=== PATIENT | female | born 1995 | race Caucasian/White ===

== ENCOUNTER 2017-07-05 13:45 | Emergency (ER) | payer OTHER ==
[~2017-07-05] VITALS: Ht 170.2 cm; Wt 106.0 kg
[2017-07-05 13:50] VITALS: BP 169/99; PULSE 102; TEMP 36.7; O2SAT 99; Ht 170.2 cm; Wt 106.0 kg
[2017-07-05] MEDS ORDERED: KETOROLAC TROMETHAMINE 15 MG/ML VIAL IV STA (14:09)
--- NOTE | 2017-07-05 14:09 | EMERGENCY ROOM VISIT NOTE ---
History First contact with patient: 13:54 Chief Complaint: FLANK PAIN Stated Complaint: BACK PAIN URGE TO URINATE History of Present Illness The patient is a 22 year old female who presents to the Emergency Room with complaints of flank pain and urinary symptoms. The patient states that she has had urinary urgency beginning 2 days ago. She states that this morning, she developed a sense onset of severe right flank pain rated a 7/10. She states this pain made it very difficult for her to get comfortable. Pain is worsened by sitting and slightly better when pacing or standing. The patient reports a history of kidney stones as a child, but has not had any recently. She states the pain radiates into her abdomen and is a crampy pain in the abdomen. She denies any other urinary symptoms and has not noticed any blood in the urine. She denies nausea or vomiting. She denies fevers. Review of Systems A complete 10 point review of systems was reviewed with the patient with pertinent positives and negatives as per history of present illness. All else were negative. Social History Smoking Status: Never Smoker Current/Historical Medications Scheduled Ondasetron Odt (Zofran Odt), 4 MG SL Q6H Paroxetine (Paxil), 40 MG PO QPM Sulfa/Trimethoprim (Bactrim Ds 800MG/160MG), 1 TAB PO BID Tamsulosin Hcl (Flomax), 0.4 MG PO DAILY Scheduled PRN Hydrocodone/Acetaminophen 5MG/325MG (Milton 5MG/325MG), 1-2 TABLET PO Q4H PRN for Pain Physical Exam Vital Signs Date Time Temp Pulse Resp B/P (MAP) Pulse Ox O2 Delivery O2 Flow Rate FiO2 07/05/17 13:50 36.7 102 24 169/99 99 Room Air Physical Exam VITALS: Vitals are noted on the nurse's note and reviewed by myself. Vital signs stable. GENERAL: This is a 22-year-old female, in no acute distress, nondiaphoretic, well-developed well-nourished. SKIN: The skin was without rashes. EARS: External auditory canals clear, tympanic membranes pearly castillo without erythema or effusion bilaterally. EYES: Pupils equal round and reactive to light and accommodation. MOUTH: Mucous membranes moist. HEART: Regular rate and rhythm without murmurs gallops or rubs. LUNGS: Clear to auscultation bilaterally without wheezes, rales or rhonchi. ABDOMEN: Positive bowel sounds x 4. Soft, mild tenderness to palpation. No focal tenderness. No guarding or rebound tenderness. MUSCULOSKELETAL: Right-sided CVA tenderness. NEURO: Patient was alert and oriented to person place and time. Medical Decision & Procedures ER Provider Diagnostic Interpretation: CT SCAN OF THE ABDOMEN AND PELVIS WITHOUT CONTRAST FINDINGS: Lower chest: The heart is normal in size and configuration, without pericardial effusion. The lung bases and pleural spaces are clear. Liver: The unenhanced liver is normal in size, contour, and attenuation. There is no intrahepatic biliary ductal dilatation. Gallbladder: Unremarkable. Spleen: Normal in size and attenuation. Pancreas: Unremarkable. Adrenal glands: Unremarkable. Kidneys: There is a 1.5 mm calculus at the level of the right ureterovesical junction. There is mild right-sided hydroureteronephrosis. There is a 5 mm proximal left ureteral calculus with minimal secondary pelvic fullness. Bowel: The appendix appears normal. There are no transition zones indicate bowel obstruction. There is no evidence of acute diverticulitis. Peritoneum: There is trace free pelvic fluid. There is no free air. There is a fat-containing umbilical hernia. Vasculature: The abdominal aorta is normal in course and caliber. Adenopathy: There is mild ileocolic lymphadenopathy. At the left renal hilar level, there are 2 water density cystic lesions in the left para-aortic region the largest of which measures 13 mm. These are of uncertain etiology and significance. Given the ileocolic lymphadenopathy, a 3-6 month follow-up study with contrast is recommended. Pelvic viscera: The bladder, and pelvic viscera are unremarkable. Skeletal structures: No destructive osseous lesions are seen. IMPRESSION: 1. 1.5 mm calculus at the level of the right ureteral vesicle junction with secondary obstructive changes 2. 5 mm proximal left ureteral calculus with only minimal secondary obstructive changes 3. Fat-containing umbilical hernia 4. No evidence of bowel obstruction. No evidence of free air. Normal appendix 5. Mild nonspecific ileocolic lymphadenopathy. In addition there are 2 cystic structures in the left para-aortic region at the level of the renal hilum. A 3-6 month follow-up CT scan with contrast is recommended. Laboratory Results 07/05/17 14:05 Red Blood Count 5.13, Mean Corpuscular Volume 89.1, Mean Corpuscular Hemoglobin 30.2, Mean Corpuscular Hemoglobin Concent 33.9, Mean Platelet Volume 9.5, Neutrophils (%) (Auto) 65.2, Lymphocytes (%) (Auto) 23.6, Monocytes (%) (Auto) 7.5, Eosinophils (%) (Auto) 3.2, Basophils (%) (Auto) 0.3, Neutrophils # (Auto) 8.29, Lymphocytes # (Auto) 3.00, Monocytes # (Auto) 0.95, Eosinophils # (Auto) 0.41, Basophils # (Auto) 0.04 07/05/17 14:05 Test 07/05/17 14:05 White Blood Count 12.72 K/uL (4.8-10.8) Red Blood Count 5.13 M/uL (4.2-5.4) Hemoglobin 15.5 g/dL (12.0-16.0) Hematocrit 45.7 % (37-47) Mean Corpuscular Volume 89.1 fL (80-100) Mean Corpuscular Hemoglobin 30.2 pg (25-34) Mean Corpuscular Hemoglobin Concent 33.9 g/dl (32-36) Platelet Count 383 K/uL (130-400) Mean Platelet Volume 9.5 fL (7.4-10.4) Neutrophils (%) (Auto) 65.2 % Lymphocytes (%) (Auto) 23.6 % Monocytes (%) (Auto) 7.5 % Eosinophils (%) (Auto) 3.2 % Basophils (%) (Auto) 0.3 % Neutrophils # (Auto) 8.29 K/uL (1.4-6.5) Lymphocytes # (Auto) 3.00 K/uL (1.2-3.4) Monocytes # (Auto) 0.95 K/uL (0.11-0.59) Eosinophils # (Auto) 0.41 K/uL (0-0.5) Basophils # (Auto) 0.04 K/uL (0-0.2) RDW Standard Deviation 41.6 fL (36.4-46.3) RDW Coefficient of Variation 12.8 % (11.5-14.5) Immature Granulocyte % (Auto) 0.2 % Immature Granulocyte # (Auto) 0.03 K/uL (0.00-0.02) Urine Color DK YELLOW Urine Appearance TURBID (CLEAR) Urine pH 5.0 (4.5-7.5) Urine Specific [place] 1.031 (1.000-1.030) Urine Protein 2+ (NEG) Urine Glucose (UA) NEG (NEG) Urine Ketones TRACE (NEG) Urine Occult Blood 2+ (NEG) Urine Nitrite NEG (NEG) Urine Bilirubin NEG (NEG) Urine Urobilinogen NEG (NEG) Urine Leukocyte Esterase TRACE (NEG) Urine WBC (Auto) 10-30 /hpf (0-5) Urine RBC (Auto) >30 /hpf (0-4) Urine Hyaline Casts (Auto) 1-5 /lpf (0-5) Urine Epithelial Cells (Auto) >30 /lpf (0-5) Urine Bacteria (Auto) 2+ (NEG) Urine Renal Epithelial Cells /lpf (0-5) Urine Pathogenic Casts /lpf (0) Urine Mucus PRESENT (NONE PRSENT) Urine Test NEG (NEG) Anion Gap 10.0 mmol/L (3-11) Est Creatinine Clear Calc Drug Dose 109.6 ml/min Estimated GFR () 92.0 Estimated GFR (Non- 79.4 BUN/Creatinine Ratio 12.9 (10-20) Calcium Level 9.5 mg/dl (8.5-10.1) Total Bilirubin 0.5 mg/dl (0.2-1) Aspartate Amino Transf (AST/SGOT) 16 U/L (15-37) Alanine Aminotransferase (ALT/SGPT) 38 U/L (12-78) Alkaline Phosphatase 72 U/L (45-117) Total Protein 7.8 gm/dl (6.4-8.2) Albumin 4.4 gm/dl (3.4-5.0) Globulin 3.4 gm/dl (2.5-4.0) Albumin/Globulin Ratio 1.3 (0.9-2) Medications Administered Medications (Trade) Dose Ordered Sig/Ashlyn Route Start Time Stop Time Status Last Admin Dose Admin Ketorolac Tromethamine (Toradol Inj) 15 mg NOW STAT IV 07/05/17 14:09 07/05/17 14:10 DC 07/05/17 14:09 15 MG ED Course The patient was evaluated as above. Labs were drawn and IV access was obtained. Patient was medicated with [address] of the abdomen and pelvis was performed and read by radiology as above. Patient was reevaluated and findings were discussed. The patient is feeling slightly better at this time. She refused any further analgesics. Discharge instructions were reviewed with the patient. The patient verbalized understanding of my assessment and treatment plan and was discharged home in good condition. Medical Decision Differential diagnosis includes kidney stone, pallor or nephritis, musculoskeletal pain, bowel obstruction, appendicitis, among others. The patient is a 22-year-old female who presents today complaining of right flank pain and urinary urgency. Labs revealed a mild leukocytosis, likely secondary to stress reaction. Creatinine is within normal limits. CT was obtained and did show a small obstructing stone at the right UVJ as well as a 5 mm left proximal ureteral stone. There was only mild hydronephrosis and nothing to suggest an underlying pyelonephritis. Urinalysis did show 2+ bacteria, however this is likely contamination given the >30 epithelial cells present and no evidence of nitrites. However, given the patient's stones she will be covered on antibiotics. She is feeling well after a dose of Toradol and would like to go home. I do suspect the right-sided stone will pass easily , however she we will need to follow-up with urology within the week. The patient is going home in a few days as she is a [email or web address] student and like to follow up there. The patient spoke with her mother, who will call to arrange this appointment. The patient also had incidental finding of some cysts near the renal hilum and will need repeat CT scan in the future for further evaluation. She was informed of this and given a copy of her CT scan. While I do not believe that the patient has an infected stone at this time, I did discuss extensively the need to return if she has worsening symptoms, fevers or any other new/concerning symptoms. The patient's case was reviewed with Dr. Nunez, ED attending physician, who agreed with my assessment and treatment plan. Based on the patient's presentation and work up, I feel the patient is stable for outpatient treatment. The patient was educated to return to the emergency department for any worsening of their current condition or new/concerning symptoms. She will follow up with urology. [place] Drug Monitoring Program Search Results: patient reviewed within database Medication Reconcilliation Current Medication List: was personally reviewed by me Blood Pressure Screening Patient's blood pressure: Elevated blood pressure Blood pressure disposition: Elevated BP felt to be situational Impression Primary Impression: Bilateral ureteral calculi Departure Information Dispostion Home / Self-Care Condition GOOD Prescriptions Sulfa/Trimethoprim (Bactrim Ds 800MG/160MG) Tab 1 TAB PO BID for 10 Days, #20 TAB Prov: Milvia Mack PA-C 07/05/17 Ondasetron Odt (ZOFRAN ODT) 4 Mg Tab 4 MG SL Q6H for Nausea, #15 TAB Prov: Milvia Mack PA-C 07/05/17 Hydrocodone/Acetaminophen 5MG/325MG (Milton 5MG/325MG) Tab 1-2 TABLET PO Q4H Y for Pain, #24 TAB For Initial Treatment Prov: Milvia Mack PA-C 07/05/17 Tamsulosin Hcl (FLOMAX) 0.4 Mg Cap 0.4 MG PO DAILY for 14 Days, #14 CAP Prov: Milvia Mack PA-C 07/05/17 Referrals No Doctor, Assigned (PCP) Rosa Glynn MD Patient Instructions [facility] Additional Instructions You have been treated in the Emergency Department today for a Kidney Stone ( Nephrolithiasis). You have been prescribed Milton to be used for pain control. This is a narcotic medication. You cannot drive or consume alcohol while on this medicine. This medicine should only be used for pain that cannot be controlled with over-the- counter pain medicines. You have been prescribed Zofran to be used for any nausea or vomiting. Take as prescribed. You have been prescribed Flomax 0.4 mg to be taken ONCE daily. This medicine has been prescribed as it can help relax the smooth muscles of the urinary tract increasing transit time of the kidney stone. For pain control, you can use the following [id number]-[id number] medicines (if >12 yo): - Regular strength (325mg/tab) Tylenol (acetaminophen) 2 tabs every 4-6 hours as needed. Do not exceed 12 tablets in a 24 hour period. Avoid taking more than 4 grams (4000 mg) of Tylenol per day. This includes any other sources of acetaminophen you may take on a regular basis. - Regular strength (200 mg/tab) Advil (ibuprofen) 1-2 tabs every 4-6 hours as needed. Do not exceed a dose of 3200 mg per day. You have been provided a strainer and specimen collection cup. You should strain your urine to collect any passed stones. Your stones can be placed into the specimen cup and taken to your Urologist for further evaluation. You have been provided the contact information for the on-call Urologist. You should contact the Urologist's office tomorrow to establish a follow-up appointment from today's Emergency Department visit. You may follow up with a urologist at home. There appeared to be some cysts on the CT scan which will likely need a repeat CT scan in 3-6 months. This may be ordered by your primary care provider or urologist. Return to the Emergency Department if your symptoms persist despite the treatment plan outlined above or if you develop the following symptoms: intractable pain, fever, chills, large amounts of blood in your urine, or any worsening or new/concerning symptoms..
[2017-07-05] MEDS ORDERED: KETOROLAC TROMETHAMINE 30 MG/ML VIAL ONE (14:20)
[2017-07-05 14:28] LABS: BASO % 0.3 %; BASO ABS # 0.04 K/uL (0-0.2); COMPLETE YES; EOS % 3.2 %; HEMATOCRIT 45.7 % (37-47); IG% 0.2 %; LYMPH % 23.6 %; MEAN CELL VOLUME 89.1 fL (80-100); MEAN CORPUSCULAR HEMOGLOBIN 30.2 pg (25-34); MEAN CORPUSCULAR HGB CONC 33.9 g/dl (32-36); MEAN PLATELET VOLUME 9.5 fL (7.4-10.4); MONO % 7.5 %; NEUT % 65.2 %; PLATELET COUNT 383 K/uL (130-400); RED BLOOD COUNT 5.13 M/uL (4.2-5.4); WHITE BLOOD COUNT 12.72 K/uL (4.8-10.8)
[2017-07-05 14:30] LABS: URINE APPEARANCE TURBID (CLEAR); URINE COLOR DK YELLOW; URINE EPITHELIAL CELL AUTO >30 /lpf (0-5); URINE NITRITE NEG (NEG); URINE SPECIFIC GRAVITY 1.031 (1.000-1.030); UROBILINOGEN NEG (NEG); ZZUR CULT IF INDIC CLEAN CATCH YES
[2017-07-05 14:36] LABS: PREG INTERNAL NEGATIVE QC NEG CLEAR BACKGROUND; PREG INTERNAL POSITIVE QC POS CONTROL LINE
[2017-07-05] MEDS ORDERED: PARO1TAB29 PO (14:40)
[2017-07-05 14:43] LABS: MANUAL MICROSCOPIC REQUIRED? NO; REVIEW REQ? YES; URINE BILIRUBIN NEG (NEG)
[2017-07-05 14:45] LABS: BUN/CREATININE RATIO 12.9 (10-20); CALCIUM 9.5 mg/dl (8.5-10.1); POTASSIUM 3.7 mmol/L (3.5-5.1)
[2017-07-05 14:48] LABS: ALB/GLOB RATIO 1.3 (0.9-2)
[2017-07-05 15:03] LABS: URINE MUCUS PRESENT (NONE PRSENT)
--- NOTE | 2017-07-05 15:15 | DIAGNOSTIC IMAGING REPORT ---
CT SCAN OF THE ABDOMEN AND PELVIS WITHOUT CONTRAST CLINICAL HISTORY: right flank pain, urinary symptoms, hx stones as child COMPARISON STUDY: No previous studies for comparison. TECHNIQUE: CT scan of the abdomen and pelvis was performed from the lung bases to the proximal femurs. Images are reviewed in the axial, sagittal, and coronal planes. IV contrast was not administered for this examination. A dose lowering technique was utilized adhering to the principles of ALARA. CT DOSE: 1040.30 mGycm FINDINGS: Lower chest: The heart is normal in size and configuration, without pericardial effusion. The lung bases and pleural spaces are clear. Liver: The unenhanced liver is normal in size, contour, and attenuation. There is no intrahepatic biliary ductal dilatation. Gallbladder: Unremarkable. Spleen: Normal in size and attenuation. Pancreas: Unremarkable. Adrenal glands: Unremarkable. Kidneys: There is a 1.5 mm calculus at the level of the right ureterovesical junction. There is mild right-sided hydroureteronephrosis. There is a 5 mm proximal left ureteral calculus with minimal secondary pelvic fullness. Bowel: The appendix appears normal. There are no transition zones indicate bowel obstruction. There is no evidence of acute diverticulitis. Peritoneum: There is trace free pelvic fluid. There is no free air. There is a fat-containing umbilical hernia. Vasculature: The abdominal aorta is normal in course and caliber. Adenopathy: There is mild ileocolic lymphadenopathy. At the left renal hilar level, there are 2 water density cystic lesions in the left para-aortic region the largest of which measures 13 mm. These are of uncertain etiology and significance. Given the ileocolic lymphadenopathy, a 3-6 month follow-up study with contrast is recommended. Pelvic viscera: The bladder, and pelvic viscera are unremarkable. Skeletal structures: No destructive osseous lesions are seen. IMPRESSION: 1. 1.5 mm calculus at the level of the right ureteral vesicle junction with secondary obstructive changes 2. 5 mm proximal left ureteral calculus with only minimal secondary obstructive changes 3. Fat-containing umbilical hernia 4. No evidence of bowel obstruction. No evidence of free air. Normal appendix 5. Mild nonspecific ileocolic lymphadenopathy. In addition there are 2 cystic structures in the left para-aortic region at the level of the renal hilum. A 3-6 month follow-up CT scan with contrast is recommended. Electronically signed by: Tunde Chamorro M.D. 07/05/2017 3:13 PM Dictated Date/Time: 07/05/2017 3:04 PM
[2017-07-05] MEDS ORDERED: TAMS0.4C38 PO (15:36)
[2017-07-05] MEDS ORDERED: ONDA4TAB10 SL (15:36)
[2017-07-05] MEDS ORDERED: HYDR-5688 PO (15:36)
[2017-07-05] MEDS ORDERED: SULF800T23 PO (15:46)
== END 2017-07-05 16:23 | disposition home or self-care (01) ==
LOC: C.EDB 13:47
DX: N20.1 Calculus of ureter (principal)